=== PATIENT | female | born 1960 | race African-American/Black ===

== ENCOUNTER 2016-11-07 08:49 | Emergency (ER) | payer BC ==
[~2016-11-07] VITALS: Ht 170.2 cm; Wt 97.1 kg
[2016-11-07 09:06] VITALS: BP 139/72
[2016-11-07] MEDS ORDERED: SULF1TAB24 PO (09:21)
[2016-11-07] MEDS ORDERED: HYDR-971 PO (09:21)
--- NOTE | 2016-11-07 09:21 | PHYS DOC ---
Past Medical History Past Medical History: No Pertinent History Past Surgical History: Hysterectomy, Tubal ligation, Other Additional Past Surgical Histo: foot surgery Alcohol Use: Occasionally Drug Use: None Adult General Chief Complaint Chief Complaint: ABSCESS [facility] HPI Patient is a 56 year old female presents emergency department stating that she has an area on her right buttocks that is very painful and tender. She states this area is been there for approximately one week. She states that she placed ice on it at first became very hard and very tender. She states that it began to drain. She states that her mom had taken a peak admitted as she is an RN and stated that she needed to come to the emergency department or have it looked at. Patient's denies any fever, chills or any nausea or vomiting. Patient is unsure when her last tetanus immunization occurred. Review of Systems Review of Systems Constitutional: Denies fever or chills [] Eyes: Denies change in visual acuity, redness, or eye pain [] HENT: Denies nasal congestion or sore throat [] Respiratory: Denies cough or shortness of breath [] Cardiovascular: No additional information not addressed in HPI [] GI: Denies abdominal pain, nausea, vomiting, bloody stools or diarrhea [] : Denies dysuria or hematuria [] Musculoskeletal: Denies back pain or joint pain [] Integument: Denies rash or skin lesions. C/o of abscess to the right buttocks area. Neurologic: Denies headache, focal weakness or sensory changes [] Physical Exam Physical Exam Constitutional: Well developed, well nourished, no acute distress, non-toxic appearance. [] HENT: Normocephalic, atraumatic, bilateral external ears normal, oropharynx moist, no oral exudates, nose normal. [] Eyes: PERRLA, EOMI, conjunctiva normal, no discharge. [] Neck: Normal range of motion, no tenderness, supple, no stridor. [] Cardiovascular:Heart rate regular rhythm, no murmur [] Lungs & Thorax: Bilateral breath sounds clear to auscultation [] Skin: Warm, dry, no erythema, no rash. Patient to the right buttocks with an area that is just slightly smaller than a dime that is opened. The area appears to be red with no drainage. Back: No tenderness Extremities: No tenderness, no cyanosis, no clubbing, ROM intact, no edema. [] Neurologic: Alert and oriented X 3, normal motor function, normal sensory function, no focal deficits noted. [] Psychologic: Affect normal, judgement normal, mood normal. [] Current Patient Data Vital Signs Vital Signs Date Time Temp Pulse Resp B/P Pulse Ox O2 Delivery O2 Flow Rate FiO2 11/07/16 09:06 99.3 77 18 98 Room Air 99.3 EKG EKG [] Radiology/Procedures Radiology/Procedures [] Course & Med Decision Making Course & Med Decision Making Pertinent Labs and Imaging studies reviewed. (See chart for details) Site was irrigated with Betadine and saline. It was also irrigated with plain saline. Quarter-inch packing was placed. Patient will be provided with hydrocodone for severe pain and discomfort with recommendations for Tylenol and ibuprofen. Patient will be placed on Bactrim 1 tablet twice a day for the next 10 days recommended her to follow up with either her primary care physician or return back here for packing removal in 2 days. Signs and symptoms to return back to emergency department as been provided. Patient agrees with discharge instructions treatment regimens and follow-up recommendations. [] Dragon Disclaimer Dragon Disclaimer This electronic medical record was generated, in whole or in part, using a voice recognition dictation system. Departure Departure Impression: Primary Impression: Abscess Disposition: 01 HOME, SELF-CARE Condition: STABLE Patient Instructions: Abscess, [id number], Incision and Drainage, Care After Additional Instructions: Activity as tolerated. Ibuprofen 600 mg every 8 hours with food. Stop taking if he developed upset stomach. Hydrocodone may be taken for severe pain and discomfort. This medication will cause drowsiness do not take any be alert and oriented. Keep the area clean and dry he may apply warm moist packs to the area to help with the discomfort. Medication as prescribed. Follow-up with either her primary care physician or return back to emergency department in 2-3 days for packing removal. Return to emergency department for signs and symptom that become worse Scripts Hydrocodone/Apap 5-325 ([place] 5-325 Tablet)1 Each Tablet1 Tab PO PRN Q6HRS PRN PAIN #10 TAB Prov:ELENA FRAIRE MIDDLEWARE ENGINEER 11/07/16 Sulfamethoxazole/Trimethoprim (Bactrim Ds Tablet)1 Each Tablet1 Tab PO BID #20 TAB Prov:ELENA FRAIRE MIDDLEWARE ENGINEER 11/07/16 ELENA FRAIRE APRN Nov 07, 2016 09:21
[2016-11-07] MEDS ORDERED: DIPHTH,PERTUSS(ACELL),TET TOX 0.5 ML DISP.SYRIN. VAX IM ONE (10:00)
== END 2016-11-07 10:05 | disposition home or self-care (01) ==
LOC: ER 08:49
DX: L02.31 Cutaneous abscess of buttock (principal)
CPT/HCPCS: 10060; 90471; 90715; 99283-25

== ENCOUNTER 2017-10-21 12:17 | Emergency (ER) | payer BC ==
[2017-10-21 12:45] LABS: POC GLUCOSE 287 mg/dL (70-99)
[2017-10-21] MEDS: IV NORMAL SALINE 1000ML BAG 1,000 ML IV (13:35)
[2017-10-21 13:51] LABS: AGAP ISTAT 14 mmol/L (6-14); BUN ISTAT 7 mg/dL (8-26); CHLORIDE ISTAT 100 mmol/L (98-110); CREATININE ISTAT 0.8 mg/dL (0.5-1.4); GLUCOSE ISTAT 292 mg/dL (70-99); HEMATOCRIT ISTAT 42 % (36-40); HEMOGLOBIN ISTAT 14.3 g/dL (12-15); ION CA ISTAT 1.11 mmol/L (1.13-1.32); POTASSIUM ISTAT 3.9 mmol/L (3.5-5.0); SODIUM ISTAT 140 mmol/L (135-145); TOT CO2 ISTAT 32 mmol/L (23-32)
[2017-10-21 14:10] LABS: BILIRUBIN,URINE NEGATIVE (NEG); CLARITY,URINE CLEAR; COLOR,URINE YELLOW; GLUCOSE,URINE >=1000 mg/dL (NEG); NITRITE,URINE NEGATIVE (NEG); PH,URINE 5.5; PROTEIN,URINE NEGATIVE (NEG-TRACE)
[2017-10-21 14:38] LABS: SQUAMOUS EPITHELIAL CELL,UR FEW /LPF
[2017-10-21 14:39] LABS: BACTERIA,URINE 0 /HPF (0-FEW); RBC,URINE RARE /HPF (0-2); WBC,URINE RARE /HPF (0-4)
== END 2017-10-21 16:22 | disposition home or self-care (01) ==
LOC: ER 12:17
DX: E11.65 Type 2 diabetes mellitus with hyperglycemia (principal); I10 Essential (primary) hypertension; Z90.710 Acquired absence of both cervix and uterus; Z98.51 Tubal ligation status
CPT/HCPCS: 36415; 80047; 81001; 82962; 85014; 85018; 96360; 99284-25; J7030

== ENCOUNTER 2018-02-27 20:34 | Emergency (ER) | payer BC | END 2018-02-27 22:13 | disposition home or self-care (01) | LOC: ER 20:34 | DX: S90.562A Insect bite (nonvenomous), left ankle, initial encounter (principal); E11.9 Type 2 diabetes mellitus without complications; Z98.51 Tubal ligation status; Z90.710 Acquired absence of both cervix and uterus; W57.XXXA Bitten or stung by nonvenomous insect and other nonvenomous arthropods, initial encounter; Y93.89 Activity, other specified; Y92.89 Other specified places as the place of occurrence of the external cause; Y99.8 Other external cause status | CPT/HCPCS: 99283; 99285-25 ==